=== PATIENT | male | born 1955 | race Caucasian/White ===

== ENCOUNTER 2019-03-21 19:15 | Emergency (ER) | payer OTHER ==
[2019-03-21 19:23] VITALS: TEMP 98.5
--- NOTE | 2019-03-21 20:29 | ED ---
General Adult HPI - General Chief complaint: Upper Respiratory Infection Stated complaint: cough Time Seen by Provider: 03/21/19 19:55 Source: patient, RN notes reviewed, old records reviewed (Reviewed records and EKG from [facility]) Mode of arrival: ambulatory Limitations: no limitations - History of Present Illness Initial comments: Patient is a pleasant 63-year-old male presenting to the emergency department recommendation from [facility]. Patient has been having cough for the past week. They did have concern for cardiomegaly based on EKG results. Patient states cough is been dry nonproductive. No chest pain. No back pain. No fevers. Patient does have some dyspnea only with lying down. No leg pain or leg swelling. No history of similar symptoms previously. No history of previous lung disease or asthma or COPD. - Related Data Previous Rx's Medication Instructions Recorded Azithromycin [Zithromax Z-pack] 250 mg PO DIRECTED #6 tab 03/21/19 methylPREDNISolone Dose Pack 24 mg PO DAILY #1 tab 03/21/19 [Medrol Dose Pack] Allergies Allergy/AdvReac Type Severity Reaction Status Date / Time No Known Allergies Allergy Verified 03/21/19 20:43 Review of Systems ROS Statement: Those systems with pertinent positive or pertinent negative responses have been documented in the HPI. ROS Other: All systems not noted in ROS Statement are negative. Constitutional: Denies: fever Eyes: Denies: eye pain ENT: Denies: ear pain Respiratory: Reports: as per HPI, cough Cardiovascular: Denies: chest pain Endocrine: Denies: fatigue Gastrointestinal: Denies: abdominal pain Genitourinary: Denies: dysuria Musculoskeletal: Denies: back pain Skin: Denies: rash Neurological: Denies: weakness Past Medical History Past Medical History: No Reported History History of Any Multi-Drug Resistant Organisms: None Reported Past Surgical History: No Surgical Hx Reported Past Psychological History: No Psychological Hx Reported Smoking Status: Former smoker Past Alcohol Use History: None Reported Past Drug Use History: None Reported General Exam Limitations: no limitations General appearance: alert, in no apparent distress Head exam: Present: atraumatic Eye exam: Present: normal appearance, PERRL ENT exam: Present: normal oropharynx Neck exam: Present: normal inspection Respiratory exam: Present: normal lung sounds bilaterally. Absent: respiratory distress, wheezes, chest wall tenderness Cardiovascular Exam: Present: regular rate, normal rhythm GI/Abdominal exam: Present: soft. Absent: tenderness Extremities exam: Present: normal inspection. Absent: pedal edema, calf tenderness Back exam: Present: normal inspection Neurological exam: Present: alert Psychiatric exam: Present: normal affect, normal mood Skin exam: Present: normal color Course Vital Signs 03/21/19 03/21/19 03/21/19 19:19 20:10 20:30 Temperature 98.5 F Pulse Rate 77 69 Respiratory 18 20 Rate Blood Pressure 180/95 163/87 163/87 O2 Sat by Pulse 98 98 Oximetry EKG Findings - EKG Comments: EKG Findings:: Sinus rhythm at 73. For screening AV block FL of 216. QRS 84. QT 386. QTc 425. Normal axis. Normal QRS. No acute ST change. Medical Decision Making - Medical Decision Making Patient reevaluated and resting comfortably in bed. Patient and family updated. Specifically both are updated regarding need for follow-up ultrasound of the liver. Patient has previously been on steroids for 5 days near the onset of symptoms. Symptoms have been closer month now. Patient states he did feel somewhat better with steroids however symptoms returned when a stop. Patient states she does have mild improvement with his handheld inhaler. - Lab Data Result diagrams: 03/21/19 19:43 03/21/19 19:43 Lab Results 03/21/19 03/21/19 03/21/19 Range/Units 19:43 19:43 19:43 WBC 9.0 (3.8-10.6) k/uL RBC 4.71 (4.30-5.90) m/uL Hgb 15.0 (13.0-17.5) gm/dL Hct 44.6 (39.0-53.0) % MCV 94.7 (80.0-100.0) fL MCH 31.9 (25.0-35.0) pg MCHC 33.7 (31.0-37.0) g/dL RDW 13.1 (11.5-15.5) % Plt Count 228 (150-450) k/uL Neutrophils % 70 % Lymphocytes % 22 % Monocytes % 3 % Eosinophils % 3 % Basophils % 0 % Neutrophils # 6.3 (1.3-7.7) k/uL Lymphocytes # 2.0 (1.0-4.8) k/uL Monocytes # 0.3 (0-1.0) k/uL Eosinophils # 0.3 (0-0.7) k/uL Basophils # 0.0 (0-0.2) k/uL PT 10.4 (9.0-12.0) sec INR 1.0 (<1.2) APTT 24.1 (22.0-30.0) sec D-Dimer 0.68 H (<0.60) mg/L FEU Sodium 140 (137-145) mmol/L Potassium 4.2 (3.5-5.1) mmol/L Chloride 101 (98-107) mmol/L Carbon Dioxide 30 (22-30) mmol/L Anion Gap 9 mmol/L BUN 14 (9-20) mg/dL Creatinine 0.84 (0.66-1.25) mg/dL Est GFR (CKD-EPI)AfAm >90 (>60 ml/min/1.73 sqM) Est GFR (CKD-EPI)NonAf >90 (>60 ml/min/1.73 sqM) Glucose 127 H (74-99) mg/dL Calcium 9.5 (8.4-10.2) mg/dL Total Bilirubin 0.6 (0.2-1.3) mg/dL AST 77 H (17-59) U/L ALT 99 H (21-72) U/L Alkaline Phosphatase 86 (38-126) U/L Troponin I (0.000-0.034) ng/mL NT-Pro-B Natriuret Pep pg/mL Total Protein 8.1 (6.3-8.2) g/dL Albumin 4.4 (3.5-5.0) g/dL 03/21/19 03/21/19 Range/Units 19:43 19:43 WBC (3.8-10.6) k/uL RBC (4.30-5.90) m/uL Hgb (13.0-17.5) gm/dL Hct (39.0-53.0) % MCV (80.0-100.0) fL MCH (25.0-35.0) pg MCHC (31.0-37.0) g/dL RDW (11.5-15.5) % Plt Count (150-450) k/uL Neutrophils % % Lymphocytes % % Monocytes % % Eosinophils % % Basophils % % Neutrophils # (1.3-7.7) k/uL Lymphocytes # (1.0-4.8) k/uL Monocytes # (0-1.0) k/uL Eosinophils # (0-0.7) k/uL Basophils # (0-0.2) k/uL PT (9.0-12.0) sec INR (<1.2) APTT (22.0-30.0) sec D-Dimer (<0.60) mg/L FEU Sodium (137-145) mmol/L Potassium (3.5-5.1) mmol/L Chloride (98-107) mmol/L Carbon Dioxide (22-30) mmol/L Anion Gap mmol/L BUN (9-20) mg/dL Creatinine (0.66-1.25) mg/dL Est GFR (CKD-EPI)AfAm (>60 ml/min/1.73 sqM) Est GFR (CKD-EPI)NonAf (>60 ml/min/1.73 sqM) Glucose (74-99) mg/dL Calcium (8.4-10.2) mg/dL Total Bilirubin (0.2-1.3) mg/dL AST (17-59) U/L ALT (21-72) U/L Alkaline Phosphatase (38-126) U/L Troponin I <0.012 (0.000-0.034) ng/mL NT-Pro-B Natriuret Pep 27 pg/mL Total Protein (6.3-8.2) g/dL Albumin (3.5-5.0) g/dL - Radiology Data Radiology results: report reviewed (ET scan of the chest negative for pulmonary embolism. There is some concern for emphysema/interstitial fibrosis. There is also some liver lesions.), image reviewed (Chest x-ray reveals no acute process) Disposition Clinical Impression: Bronchitis Disposition: HOME SELF-CARE Condition: Stable Instructions (If sedation given, give patient instructions): Acute Bronchitis (ED) Additional Instructions: Please follow-up with primary care physician in the next day or 2 for recheck. Please have primary care physician review results from today, specifically of computed tomography scan and scheduled for ultrasound of the liver. Return for fever, difficulty breathing, chest pain, worsening or change in symptoms or other concerns. Prescriptions: methylPREDNISolone Dose Pack [Medrol Dose Pack] 24 mg PO DAILY #1 tab Azithromycin [Zithromax Z-pack] 250 mg PO DIRECTED #6 tab Is patient prescribed a controlled substance at d/c from ED?: No Referrals: Joshua Ghosh MD [Primary Care Provider] - 1-2 days Time of Disposition: 22:22
[2019-03-21 20:39] LABS: Basophils % (A) 0 %; Eosinophils # (A) 0.3 k/uL (0-0.7); Eosinophils % (A) 3 %; HCT 44.6 % (39.0-53.0); Lymphocytes % (A) 22 %; MCH 31.9 pg (25.0-35.0); MCHC 33.7 g/dL (31.0-37.0); MCV 94.7 fL (80.0-100.0); Mean Platelet Volume 7.2; Monocytes # (A) 0.3 k/uL (0-1.0); Monocytes % (A) 3 %; Neutrophils # (A) 6.3 k/uL (1.3-7.7); Neutrophils % (A) 70 %; Platelet Count 228 k/uL (150-450); RBC 4.71 m/uL (4.30-5.90); RDW 13.1 % (11.5-15.5)
[2019-03-21 20:44] LABS: ALT 99 U/L (21-72); AST 77 U/L (17-59); Albumin 4.4 g/dL (3.5-5.0); Alkaline Phosphatase 86 U/L (38-126); Anion Gap 9 mmol/L; Blood Urea Nitrogen 14 mg/dL (9-20); Calcium 9.5 mg/dL (8.4-10.2); Carbon Dioxide 30 mmol/L (22-30); Chloride 101 mmol/L (98-107); Glucose 127 mg/dL (74-99); Potassium 4.2 mmol/L (3.5-5.1); Sodium 140 mmol/L (137-145); Total Bilirubin 0.6 mg/dL (0.2-1.3); Total Protein 8.1 g/dL (6.3-8.2)
--- NOTE | 2019-03-21 20:45 | XR ---
EXAMINATION TYPE: XR chest 2V DATE OF EXAM: 03/21/2019 COMPARISON: NONE HISTORY: Short of breath TECHNIQUE: Frontal and lateral views of the chest are obtained. FINDINGS: Heart and mediastinum are normal. Lungs are clear. Diaphragm is normal. Bony thorax appear s normal. IMPRESSION: Normal chest
[2019-03-21 20:52] LABS: Partial Thromboplastin Time 24.1 sec (22.0-30.0); Prothrombin Time 10.4 sec (9.0-12.0)
[2019-03-21 21:03] LABS: D-Dimer 0.68 mg/L FEU (<0.60)
--- NOTE | 2019-03-21 21:38 | CT ---
EXAMINATION TYPE: CT angio chest DATE OF EXAM: 03/21/2019 9:26 PM COMPARISON: None HISTORY: Pt sent here from [employer] due to abnormal EKG. PT c/o SOB CT DLP: 567.6 mGycm Automated exposure control for dose reduction was used. CONTRAST: CTA scan of the thorax is performed with IV Contrast, patient injected with 100 mL of Isovue 370, pul monary embolism protocol. . There are 3-D post processed images. FINDINGS: There is some coarsening interstitial density in the mid and lower lung [place]. There is minimal emph ysematous change. There is no pericardial effusion. There is no pleural effusion. There is no evidenc e of a pulmonary mass. There is no mediastinal adenopathy. Thoracic aorta shows no evidence of aneurysm or dissection. There are no hilar masses. There is normal contrast opacification of the pulmonary arteries. There are no filling defects. There is hypertrophic spurring in the thoracic spine. I see no bony destructive proc ess. There are multiple hypodense small foci throughout the liver. These measure up to 1.8 cm. IMPRESSION: NO EVIDENCE OF PULMONARY EMBOLISM. MILD PULMONARY FIBROTIC CHANGES. Multiple hypodense liver foci raises the possibility of metastatic disease. Follow-up recommended. Chiki lyons would be helpful for confirmation.
[2019-03-21] MEDS ORDERED: AZITHROMYCIN 500 MG TAB PO STA (22:18)
[2019-03-21] MEDS ORDERED: predniSONE 20 MG TAB PO STA (22:19)
[2019-03-21 22:39] VITALS: BP 159/96; PULSE 67; RESP 11
== END 2019-03-21 22:39 | disposition home or self-care (01) ==
LOC: EC 19:15
DX: J40 Bronchitis, not specified as acute or chronic (principal); Z87.891 Personal history of nicotine dependence
CPT/HCPCS: 36415; 93005; 85379; 83880; 80053; 84484; 85025; 85610; 85730; 71046; 71275; 99284; J7512; Q9967

== ENCOUNTER → 2019-04-04 | Outpatient (CLI) | payer OTHER ==
--- NOTE | 2019-04-04 07:46 | US ---
EXAMINATION TYPE: US liver DATE OF EXAM: 04/04/2019 COMPARISON: NONE CLINICAL HISTORY: K76.89 Hepatic mass F/U to chest CT CT ordered today to follow ultrasound. EXAM MEASUREMENTS: Liver Length: 14.8 cm Gallbladder Wall: 0.2 cm CBD: 0.4 cm Right Kidney: 10.2 x 5.7 x 5.5 cm Pancreas: Obscured by bowel gas Liver: the liver shows what appear to be innumerable liver cysts, some show internal echoes Gallbladder: wnl Evidence for sonographic Martines's sign: no CBD: wnl Right Kidney: 2 echogenic foci, possible stones largest measuring 0.4 x 0.3 x 0.5cm, 2 cysts, large st measuring 6.0 x 5.5 x 5.8cm IMPRESSION: 1. There are numerous cystic lesions in the liver. There is increased in attenuation correlate for he patic steatosis or hepatocellular disease. 2. Findings are suggestive of right-sided nephrolithiasis. 3. Right renal simple cysts.
[2019-04-04 09:48] LABS: Basophils % (A) 1 %; Eosinophils # (A) 0.1 k/uL (0-0.7); Eosinophils % (A) 2 %; HCT 48.5 % (39.0-53.0); Lymphocytes % (A) 26 %; MCH 32.9 pg (25.0-35.0); MCHC 33.1 g/dL (31.0-37.0); MCV 99.6 fL (80.0-100.0); Macrocytosis Slight; Monocytes # (A) 0.3 k/uL (0-1.0); Monocytes % (A) 4 %; Neutrophils # (A) 5.1 k/uL (1.3-7.7); Neutrophils % (A) 66 %; Platelet Count 270 k/uL (150-450); RBC 4.87 m/uL (4.30-5.90); WBC 7.7 k/uL (3.8-10.6)
[2019-04-04 09:51] LABS: ALT 84 U/L (21-72); AST 75 U/L (17-59); African American GFR (CKD) >90 (>60 ml/min/1.73 sqM); Albumin 4.6 g/dL (3.5-5.0); Alkaline Phosphatase 76 U/L (38-126); Anion Gap 9 mmol/L; Bilirubin, Delta 0.1 mg/dL (0.0-0.2); Bilirubin,Unconjugated 0.6 mg/dL (0.0-1.1); Blood Urea Nitrogen 10 mg/dL (9-20); Calcium 9.5 mg/dL (8.4-10.2); Carbon Dioxide 30 mmol/L (22-30); Chloride 102 mmol/L (98-107); Glucose 127 mg/dL (74-99); Potassium 4.5 mmol/L (3.5-5.1); Sodium 141 mmol/L (137-145); Total Bilirubin 0.7 mg/dL (0.2-1.3); Total Protein 8.2 g/dL (6.3-8.2)
--- NOTE | 2019-04-04 11:47 | CT ---
EXAMINATION TYPE: CT abdomen pelvis w con DATE OF EXAM: 04/04/2019 COMPARISON: Correlation ultrasound same day HISTORY: 63-year-old male Hepatic mass TECHNIQUE: Contiguous axial scanning of the abdomen and pelvis following administration of 100 ml Iso ino 300 IV contrast. Delayed images through the kidneys and coronal/sagittal reconstructions perform ed. CT DLP: 1310.2 mGycm Automated exposure control for dose reduction was used. FINDINGS: Heart normal size without pericardial effusion. Dominant epicardial fat pad. Calcified granuloma concetta pheral right base. No pleural effusion. There are numerous cysts within the liver, largest measuring 1.9 cm. A couple of the hypodense lesion s are partially exophytic along the left hepatic dome measuring 1.8 cm and 1.2 cm in demonstrates ind eterminate attenuation. Portal venous system is patent. No biliary ductal dilatation. Gallbladder, adrenal glands, spleen, and pancreas appear within normal limits. Numerous bilateral renal cysts, largest measuring 6.5 cm on the right and 5.6 cm on the left. No mesenteric or retroperitoneal lymphadenopathy. No dilated small bowel, free fluid, or free air. Normal appendix. Oral contrast has progressed to the proximal sigmoid. Left hemicolonic diverticulosi s. No perisplenic inflammatory change. Bladder is urine distended. Prominent rounded left inguinal lymph node is borderline to mildly enlarg ed at 1.6 cm, axial image 20. No abnormal fluid collection pelvis. Bones: Degenerative changes at the right SI joint. Bridging anterior endplate spondylosis throughout the spine suggesting disc. Hypertrophic facet arthropathy at the lower lumbar spine with severe bilat eral neuroforaminal stenosis at L5-S1. IMPRESSION: 1. NUMEROUS HEPATIC CYSTS MEASURING UP TO 1.9 CM. A COUPLE OF THESE HYPODENSE LESIONS ARE PARTIALLY E XOPHYTIC ALONG THE LEFT HEPATIC DOME MEASURING UP TO 1.8 CM AND SHOW INDETERMINATE ATTENUATION. COMPL ICATED CYSTS ARE SUSPECTED. SIX-MONTH FOLLOW-UP CAN BE PERFORMED A PRECAUTIONARY MEASURE. 2. ADDITIONAL NUMEROUS BILATERAL RENAL CYSTS MEASURING UP TO 6.5 CM. 3. BORDERLINE TO MILDLY ENLARGED SOLITARY LEFT INGUINAL LYMPH NODE MEASURING 1.6 CM. CORRELATE WITH P HYSICAL EXAM FINDINGS. THIS MAY BE REACTIVE/POST INFLAMMATORY AND CAN BE FOLLOWED CLINICALLY. THE ARE A CAN BE REIMAGED IF ANY GROWTH IS NOTED. 4. LEFT-SIDED COLONIC DIVERTICULOSIS.
[2019-04-04 17:35] LABS: Hemoglobin A1C 7.6 % (4.0-6.0)
== END | disposition home or self-care (01) ==
LOC: RADUSWWP 06:46
PROVIDERS: ATTEND Internal Medicine
DX: K76.89 Other specified diseases of liver (principal); N28.1 Cyst of kidney, acquired; K57.30 Diverticulosis of large intestine without perforation or abscess without bleeding; R59.9 Enlarged lymph nodes, unspecified
CPT/HCPCS: 80048; 80076; 85025; 83036; 76705; 74177; 36415; Q9967

== ENCOUNTER → 2019-07-09 | Outpatient (CLI) | payer OTHER ==
[2019-07-09 16:56] LABS: Hemoglobin A1C 5.3 % (4.0-6.0)
[2019-07-09 17:29] LABS: African American GFR (CKD) 106.5 (60.0-200.0); Anion Gap 12.1 mmol/L (4.00-12.00); Calcium 9.3 mg/dL (8.7-10.3); Carbon Dioxide 26.9 mmol/L (21.6-31.8); Potassium 4.6 mmol/L (3.5-5.5)
== END | disposition home or self-care (01) ==
LOC: LABWHC1 08:00
PROVIDERS: ATTEND Internal Medicine
DX: E11.9 Type 2 diabetes mellitus without complications (principal)
CPT/HCPCS: 36415; 80048; 83036

== ENCOUNTER → 2019-09-18 | Outpatient (CLI) | payer OTHER ==
[2019-09-18 14:03] LABS: African American GFR (CKD) >90 (>60 ml/min/1.73 sqM); Blood Urea Nitrogen 10 mg/dL (9-20); Non-African American GFR(CKD) >90 (>60 ml/min/1.73 sqM)
--- NOTE | 2019-09-19 10:33 | CT ---
EXAMINATION TYPE: CT abdomen pelvis w con DATE OF EXAM: 09/18/2019 COMPARISON: 04/04/2019 HISTORY: 63-year-old male hepatic masses TECHNIQUE: Contiguous axial scanning of the abdomen and pelvis following administration of 100 ml Iso ino 300 IV contrast. Delayed images through the kidneys and coronal/sagittal reconstructions perform ed. CT DLP: 1119.4 mGycm Automated exposure control for dose reduction was used. FINDINGS: Heart normal size without pericardial effusion. Stable partially calcified granuloma peripheral right base. Suggestion of mild emphysematous change in the lower lungs. No pleural effusion. Innumerable hepatic cysts are redemonstrated. A couple of these along the left hepatic dome again seth w intermediate attenuation. One of these is stable at 1.2 cm. The second is slightly larger at 2.5 cm versus 1.8 cm, previously. Slightly enlarging complicated cyst remains favored. No biliary ductal dilatation. Portal venous system is patent. Gallbladder, adrenal glands, spleen, and pancreas appear within normal limits. Bilateral multiple renal cysts redemonstrated measuring up to 6.5 cm on the right and 5.7 cm on the l eft. No dilated small bowel, free fluid, or free air. No mesenteric or retroperitoneal lymphadenopathy. Normal appendix. Moderate stool burden. Left-sided colonic diverticulosis. Mildly redundant sigmoid colon. No pericolo piter inflammatory change. Mild circumferential bladder wall thickening. Prostate gland measures 4.1 cm wide. No abnormal fluid collection the pelvis. A 1.6 cm left inguinal lymph node remains stable after 6 months. Bones: Stable sclerotic focus within the right inferior pubic ramus, probable bone island. Degenerati ve changes at the hips and SI joints. Facet arthropathy lower lumbar spine. Throughout the visualize d thoracic and lumbar spine. There may be a moderate underlying spinal canal stenosis with bilateral lateral recess stenosis secon anna to hypertrophic facet arthropathy at the L5 level. IMPRESSION: 1. REDEMONSTRATED NUMEROUS HEPATIC CYSTS. 2 OF THESE IN THE LEFT HEPATIC DOME ARE AGAIN NOTED TO BE O F INDETERMINATE ATTENUATION. ONE HAS INCREASED IN SIZE FROM 1.8 CM NOW TO 2.5 CM. A COMPLICATED CYST WITH INCREASING SIZE REMAINS FAVORED RATHER THAN NEOPLASM. ADDITIONAL SIX-MONTH FOLLOW-UP CAN BE PERF ORMED. THE REMAINING LESIONS/CYSTS ARE STABLE. 2. NUMEROUS BILATERAL RENAL CYSTS REDEMONSTRATED MEASURING UP TO 6.5 CM. 3. STABLE 1.6 CM LEFT INGUINAL LYMPH NODE OVER THE COURSE OF 6 MONTHS. A BENIGN REACTIVE/POST INFLAMM ATORY ETIOLOGY IS SUGGESTED. AGAIN, THIS CAN BE FOLLOWED CLINICALLY. 4. LEFT-SIDED COLONIC DIVERTICULOSIS. 5. MILD CIRCUMFERENTIAL BLADDER WALL THICKENING COULD REPRESENT CHRONIC BLADDER HYPERTROPHY OR CYSTIT IS. CLINICALLY CORRELATE. 6. HYPEROSTOTIC CHANGES AT THE L5-S1 FACET JOINTS RESULTING IN MODERATE SPINAL CANAL STENOSIS AND LAT ERAL RECESS STENOSIS ON BOTH SIDES.
== END | disposition home or self-care (01) ==
LOC: RADCTMAIN 13:24
PROVIDERS: ATTEND Internal Medicine
DX: K76.89 Other specified diseases of liver (principal); N28.1 Cyst of kidney, acquired; K57.30 Diverticulosis of large intestine without perforation or abscess without bleeding
CPT/HCPCS: 82565; 84520; 74177; 36415; Q9967

== ENCOUNTER → 2023-11-16 | Outpatient (CLI) | payer BC ==
[2023-11-16 17:53] LABS: African American GFR (CKD) >90 (>60 ml/min/1.73 sqM); Blood Urea Nitrogen 16 mg/dL (9-20); Non-African American GFR(CKD) >90 (>60 ml/min/1.73 sqM)
--- NOTE | 2023-11-16 20:21 | CT ---
EXAMINATION TYPE: CT abdomen w con CT DLP: 724.7 mGycm, Automated exposure control for dose reduction was used. DATE OF EXAM: 11/16/2023 6:37 PM COMPARISON: 09/18/2019 CLINICAL INDICATION:Male, 67 years old with history of K76.89 OTHER SPECIFIED D ISEASES OF LIVER; liver cyst TECHNIQUE: Axial CT abdomen w con;Sagittal and coronal reformats were created on a separate workstat ion. Contrast used:100ml mL of Isovue 300 with IV Contrast, (none if empty) Oral contrast used: with Oral Contrast (none if empty) FINDINGS: LOWER CHEST: Right lower lobe calcified granuloma. ABDOMEN LIVER: Scattered hypoattenuating lesions are seen throughout the liver. Largest in the right hepatic lobe measuring up to 21 x 12 mm and 18 x 14 mm and in the left hepatic lobe measuring up to 14 x 13 m m. GALLBLADDER AND BILE DUCTS: Unremarkable. PANCREAS: Unremarkable. SPLEEN: Unremarkable. ADRENAL GLANDS: Unremarkable. KIDNEYS AND URETERS: No evidence of hydronephrosis or renal calculus. The ureters are unremarkable. Simple appearing bilateral renal cysts measuring up to 6.6 cm on the right and 6.3 cm on the left. PELVIS BLADDER: Unremarkable REPRODUCTIVE: Unremarkable. ABDOMEN & PELVIS STOMACH AND BOWEL: No evidence of bowel obstruction. Scattered colonic diverticula. The appendix is n ormal. PERITONEUM/RETROPERITONEUM: No evidence of pneumoperitoneum or free fluid. VASCULATURE: No evidence of aortic aneurysm. MUSCULOSKELETAL: No acute osseous abnormalities LYMPH NODES: No gross evidence for lymphadenopathy. SOFT TISSUE/ABDOMINAL WALL: Unremarkable IMPRESSION: 1. Scattered hypoattenuating lesions in the liver which do not definitely enhance. Findings relative ly stable from 2019. Findings favor small cysts versus multiple biliary hamartomas/von Meyenburg comp lexes. No suspicious hepatic observation. 2. Simple appearing bilateral renal cysts. No follow-up recommended. 3. Scattered colonic diverticulosis. 4. No evidence for acute abdominal process.
== END | disposition home or self-care (01) ==
LOC: RADCTMAIN 17:12
PROVIDERS: ATTEND Internal Medicine Gastroenterology
DX: K57.30 Diverticulosis of large intestine without perforation or abscess without bleeding (principal); N28.1 Cyst of kidney, acquired
CPT/HCPCS: 82565; 84520; 74160; 36415; Q9967